=== PATIENT | female | born 1955 | race Caucasian/White ===

== ENCOUNTER 2018-02-17 20:14 | Emergency (ER) | payer MEDICARE, MEDICAID ==
[~2018-02-17] VITALS: Ht 157.5 cm; Wt 52.2 kg
[2018-02-17 21:44] LABS: BASOPHILS % (AUTO) 1.3 % (0.0-2.0); EOSINOPHILS % (AUTO) 0.3 % (0.0-3.0); HEMATOCRIT 48.6 % (37.0-47.0); HEMOGLOBIN 15.3 G/DL (12.0-16.0); LYMPHOCYTES % (AUTO) 29.4 % (20.0-45.0); MEAN CORPUSCULAR VOLUME 90 FL (80-99); MONOCYTES % (AUTO) 10.3 % (1.0-10.0); NEUTROPHILS % (AUTO) 58.8 % (45.0-75.0); PLATELET COUNT 254 K/UL (150-450); RED BLOOD COUNT 5.39 M/UL (4.20-5.40); RED CELL DISTRIBUTION WIDTH 12.3 % (11.6-14.8); WHITE BLOOD COUNT 6.1 K/UL (4.8-10.8)
[2018-02-17 21:46] LABS: ANION GAP 12 mmol/L (5-15); BLOOD UREA NITROGEN 16 mg/dL (7-18); CALCIUM 9.5 MG/DL (8.5-10.1); CARBON DIOXIDE 24 MMOL/L (21-32); CHLORIDE 102 MMOL/L (98-107); POTASSIUM 4.2 MMOL/L (3.5-5.1); SODIUM 138 MMOL/L (136-145)
[2018-02-17 22:00] LABS: ALANINE AMINOTRANSFERASE 16 U/L (12-78); ALBUMIN 3.5 G/DL (3.4-5.0); ALKALINE PHOSPHATASE 81 U/L (46-116); ASPARTATE AMINO TRANSFERASE 14 U/L (15-37); BILIRUBIN,TOTAL 0.3 MG/DL (0.2-1.0); CKMB 0.6 NG/ML (0.0-3.6); CREATINE KINASE 40 U/L (26-308)
[2018-02-17 22:27] VITALS: BP 146/82
--- NOTE | 2018-02-17 22:36 | Diagnostic Imaging Report ---
EXAM: XR Chest, 1 View CLINICAL HISTORY: SOB TECHNIQUE: Frontal view of the chest. COMPARISON: No relevant prior studies available. FINDINGS: Lungs: Unremarkable. No consolidation. Pleural space: Unremarkable. No pneumothorax. Heart: Unremarkable. No cardiomegaly. Mediastinum: Unremarkable. Bones/joints: Unremarkable. IMPRESSION: No radiographic evidence of acute cardiopulmonary disease.
[2018-02-17 22:45] VITALS: BP 146/82
--- NOTE | 2018-02-18 00:48 | Emergency Room Report ---
History of Present Illness General Chief Complaint: Chest Pain Source: Patient Present Illness HPI Patient is a 62-year-old female who presented after increased left-sided chest pain. The patient for increased pain to the left upper extremity left shoulder. 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 The patient denies any change in pain with respirations. She is chronically debilitated secondary to multiple sclerosis. Patient reports having prior GI bleeding episodes in the past. She was noted to have multiple medication allergies. Pain is sharp in nature and worse with movement and light touch. The patient additionally reports having some upper extremity pain to her left shoulder. Patient reports having increased pain with movement as well as to her left upper extremity. Allergies: Coded Allergies: CODEINE (Verified Allergy, Unknown, 02/17/18) LIDOCAINE (Verified Allergy, Unknown, 02/17/18) NITRATE ANALOGUES (Verified Allergy, Unknown, 02/17/18) NSAIDS (NON-STEROIDAL ANTI-INFLAMMA (Verified Allergy, Unknown, 02/17/18) Patient History Past Medical History: see triage record Now: No Reviewed Nursing Documentation: PMH: Agreed; PSxH: Agreed Nursing Documentation-PMH Past Medical History: No History, Except For Hx Cardiac Problems: Yes - SVT, Angina, Enlarged left ventricle Hx Hypertension: Yes Hx Diabetes: No - Hypogycemia Hx Dialysis: No - Kidney stones History Of Psychiatric Problem: No - Chronic Insomnia, Chronic Pain, Migraines Hx Neurological Problems: Yes - Arthritis, MS, Fibromyalgia, Lupus Review of Systems All Other Systems: negative except mentioned in HPI Physical Exam Vital Signs Date Time Temp Pulse Resp B/P (MAP) Pulse Ox O2 Delivery O2 Flow Rate FiO2 02/17/18 20:21 98.3 86 21 144/90 98 Room Air 98.2 General Appearance: well appearing, no apparent distress, alert, GCS 15, Chronically Ill ENT: normal ENT inspection, hearing grossly normal, normal pharynx, uvula midline Neck: limited range of motion Respiratory: lungs clear, normal breath sounds, no rhonchi Cardiovascular #1: edema - trace edema Gastrointestinal: normal inspection Musculoskeletal: decreased range of motion Neurologic: normal inspection, alert, oriented x3, responsive, driveway attendant III-XII nml as tested, motor strength/tone normal Psychiatric: normal inspection, judgement/insight normal, memory normal, mood/ affect normal Skin: normal inspection, normal color Medical Decision Making Diagnostic Impression: Primary Impression: Chronic pain Additional Impression: Neuropathy ER Course The patient presented for chest pain. Differential diagnosis included but was not limited to acute coronary syndrome, pulmonary embolism, pneumonia, aortic dissection, shingles, pneumothorax, aortic dissection, esophageal rupture, pericarditis. Because of complexity of patient's case laboratory testing and imaging studies were ordered.Laboratory testing was notable for slightly elevated BNP. The initial troponin was 0. The patient as states that she cannot take medications and declined CT imaging. Patient is advised that the EKG was abnormal and she had the risk factors for pulmonary embolism. The patient was advised risk benefits alternatives of leaving AGAINST MEDICAL ADVICE and he indicated understanding and all questions are answered patient still continued want to leave and signed AGAINST MEDICAL ADVICE. Despite risks including but not limited to disability and worsening of current lifestyle.The patient was advised that she may need anticoagulation required further workup at this time. The patient was given the number for a [employer] space salesperson to follow-up. Labs Test 02/17/18 21:15 White Blood Count 6.1 K/UL (4.8-10.8) Red Blood Count 5.39 M/UL (4.20-5.40) Hemoglobin 15.3 G/DL (12.0-16.0) Hematocrit 48.6 % (37.0-47.0) Mean Corpuscular Volume 90 FL (80-99) Mean Corpuscular Hemoglobin 28.4 PG (27.0-31.0) Mean Corpuscular Hemoglobin Concent 31.5 G/DL (32.0-36.0) Red Cell Distribution Width 12.3 % (11.6-14.8) Platelet Count 254 K/UL (150-450) Mean Platelet Volume 10.7 FL (6.5-10.1) Neutrophils (%) (Auto) 58.8 % (45.0-75.0) Lymphocytes (%) (Auto) 29.4 % (20.0-45.0) Monocytes (%) (Auto) 10.3 % (1.0-10.0) Eosinophils (%) (Auto) 0.3 % (0.0-3.0) Basophils (%) (Auto) 1.3 % (0.0-2.0) Prothrombin Time 10.0 SEC (9.30-11.50) Prothromb Time International Ratio 1.0 (0.9-1.1) Activated Partial Thromboplast Time 24 SEC (23-33) D-Dimer 0.19 mg/L FEU (0.00-0.49) Sodium Level 138 MMOL/L (136-145) Potassium Level 4.2 MMOL/L (3.5-5.1) Chloride Level 102 MMOL/L (98-107) Carbon Dioxide Level 24 MMOL/L (21-32) Anion Gap 12 mmol/L (5-15) Blood Urea Nitrogen 16 mg/dL (7-18) Creatinine 1.0 MG/DL (0.55-1.30) Estimat Glomerular Filtration Rate 56.2 mL/min (>60) Glucose Level 109 MG/DL (74-106) Calcium Level 9.5 MG/DL (8.5-10.1) Total Bilirubin 0.3 MG/DL (0.2-1.0) Aspartate Amino Transf (AST/SGOT) 14 U/L (15-37) Alanine Aminotransferase (ALT/SGPT) 16 U/L (12-78) Alkaline Phosphatase 81 U/L (46-116) Total Creatine Kinase 40 U/L (26-308) Creatine Kinase MB 0.6 NG/ML (0.0-3.6) Creatine Kinase MB Relative Index 1.5 Troponin I 0.000 ng/mL (0.000-0.056) C-Reactive Protein, Quantitative < 0.4 mg/dL (0.00-0.90) Pro-B-Type Natriuretic Peptide 526 pg/mL (0-125) Total Protein 7.1 G/DL (6.4-8.2) Albumin 3.5 G/DL (3.4-5.0) Globulin 3.6 g/dL Albumin/Globulin Ratio 1.0 (1.0-2.7) Lipase 198 U/L (73-393) EKG Diagnostic Results Rate: normal Rhythm: NSR ST Segments: no acute changes Last Vital Signs Date Time Temp Pulse Resp B/P (MAP) Pulse Ox O2 Delivery O2 Flow Rate FiO2 02/17/18 22:27 98.2 77 15 146/82 99 Room Air 98.2 Status: unchanged Disposition: AGAINST MEDICAL ADVICE Condition: Stable Referrals: Macho Conde MD Patient Instructions: Neuropathic Pain, Nonspecific Chest Pain Additional Instructions: Return if you change your mind regarding Chest CT or hospitalization. Dinesh Muniz MD Feb 18, 2018 00:48
--- NOTE | 2018-02-19 10:12 | Cardiology Report ---
APPROVED REPORT EKG Measurement Heart [id number] Normal sinus rhythm Low voltage QRS Abnormal ECG
== END 2018-02-17 22:45 | disposition left against medical advice (07) ==
LOC: EMR 20:42
DX: G89.29 Other chronic pain (principal); G62.9 Polyneuropathy, unspecified; I10 Essential (primary) hypertension; R07.9 Chest pain, unspecified; M32.9 Systemic lupus erythematosus, unspecified; G35 Multiple sclerosis; Z88.5 Allergy status to narcotic agent; Z88.8 Allergy status to other drugs, medicaments and biological substances
CPT/HCPCS: 36415; 71045; 80053; 82550; 82553; 83690; 83880; 84484; 85025; 85379; 85610; 85730; 86140; 93005; 99283